=== PATIENT | male | born 1995 | race Caucasian/White ===

== ENCOUNTER 2016-10-16 18:26 | Emergency (ER) | payer OTHER ==
[~2016-10-16] VITALS: Ht 182.9 cm; Wt 75.0 kg
[~2016-10-16 18:26] MED LIST: FLOMAX 0.40.4 MG/CAP PO; KLONOPIN 0.5MG0.5 MG PO; MINOCIN 50M50 MG/CAP PO; PERCOCET 325 MG1 TA2 PO; ULTRAM 50MG TAB50 MG PO; ZOFRAN8 MG PO
[2016-10-16 18:34] VITALS: TEMP 97.9
[2016-10-16 21:19] VITALS: BP 120/72; PULSE 82
== END 2016-10-16 21:21 | disposition home or self-care (01) ==
LOC: COL.ER 18:26
DX: T23.252A Burn of second degree of left palm, initial encounter (principal); T23.242A Burn of second degree of multiple left fingers (nail), including thumb, initial encounter; W39.XXXA Discharge of firework, initial encounter; Z72.89 Other problems related to lifestyle; F41.9 Anxiety disorder, unspecified

== ENCOUNTER 2017-08-27 16:30 | Emergency (ER) | payer OTHER ==
[~2017-08-27] VITALS: Ht 182.9 cm; Wt 72.7 kg
[2017-08-27 16:33] VITALS: TEMP 96.9
[2017-08-27] MEDS ORDERED: XANAX 0.5MG0.5 MG PO (17:01)
[2017-08-27 17:13] LABS: BASO # 0.1 (0.0-0.2); BASO % 0.6 % (0.0-2.0); EOS % 0.3 % (0-4.0); GRAN # 8.2 (1.4-6.5); GRAN % 77.8 % (42.2-75.2); HEMATOCRIT 43.9 % (42.0-52.0); HEMOGLOBIN 14.8 g/dl (13.5-18.0); LYMPH # 1.3 (1.2-3.4); LYMPH % 12.7 % (20.0-51.0); MEAN CELL VOLUME 75 fl (80.0-100.0); MEAN CORPUSCULAR HEMOGLOBIN 25 pg (27.0-31.0); MEAN CORPUSCULAR HGB CONC 34 g/dl (33.0-37.0); MONO # 0.8 (0.1-0.6); MONO % 7.9 % (1.7-9.3); PLATELET COUNT 252 K/mm3 (130-400); RED BLOOD COUNT 5.85 M/mm3 (4.20-5.60); REDCELL DISTRIBUTION WIDTH-CV 14.8 % (11.5-14.5)
[2017-08-27 17:23] LABS: ALBUMIN 4.9 gm/dL (3.5-5.0); BILIRUBIN,TOTAL 1.7 mg/dL (0.0-1.0); CALCIUM 10.1 mg/dL (8.4-10.2); CREATININE, serum 0.84 mg/dL (0.66-1.25); POTASSIUM 4.3 mmol/L (3.4-5.0); TOTAL PROTEIN 8.8 gm/dL (6.4-8.2)
[2017-08-27 18:07] LABS: COLLECTION METHOD CLEAN CATCH
[2017-08-27] MEDS ORDERED: PEPCID 20MG TAB20 MG PO (18:16)
[2017-08-27 18:18] LABS: MUCOUS Present /lpf; PH 7 (5-8); SQUAMOUS EPITHELIAL 0-2 /hpf; URINE APPEARANCE Hazy; URINE BACTERIA None Seen /hpf; URINE BILIRUBIN Positive (NEGATIVE); URINE BLOOD Negative (NEGATIVE); URINE COLOR Amber; URINE GLUCOSE Negative (NEGATIVE); URINE KETONE Trace (NEGATIVE); URINE LEUKOCYTE ESTERASE Negative (NEGATIVE); URINE NITRATE Negative (NEGATIVE); URINE PROTEIN(semi-quant) 2+ (NEGATIVE); URINE RBC None Seen /hpf; URINE UROBILINOGEN >=4.0 mg/dL (NEGATIVE)
[2017-08-27 18:45] VITALS: BP 126/84; PULSE 92
== END 2017-08-27 18:46 | disposition home or self-care (01) ==
LOC: COL.ER 16:30
PROVIDERS: Emergency Medicine
DX: K52.9 Noninfective gastroenteritis and colitis, unspecified (principal); Z87.442 Personal history of urinary calculi
CPT/HCPCS: J2765; J3010; J7030

== ENCOUNTER 2018-09-29 13:57 | Emergency (ER) | payer OTHER ==
[~2018-09-29] VITALS: Ht 182.9 cm; Wt 77.3 kg
[~2018-09-29 13:57] MED LIST changes: +PEPCID 20MG TAB20 MG PO; +XANAX 0.5MG0.5 MG PO
[2018-09-29 16:04] LABS: BASO # 0.1 (0.0-0.2); BASO % 0.7 % (0.0-2.0); EOS % 0.2 % (0-4.0); GRAN # 7.6 (1.4-6.5); GRAN % 78.3 % (42.2-75.2); HEMATOCRIT 43.5 % (42.0-52.0); HEMOGLOBIN 14.3 g/dl (13.5-18.0); LYMPH # 1.4 (1.2-3.4); LYMPH % 13.9 % (20.0-51.0); MEAN CELL VOLUME 75 fl (80.0-100.0); MEAN CORPUSCULAR HEMOGLOBIN 25 pg (27.0-31.0); MEAN CORPUSCULAR HGB CONC 33 g/dl (33.0-37.0); MEAN PLATELET VOLUME 10.4 fl (7.4-10.4); MONO # 0.6 (0.1-0.6); MONO % 6.2 % (1.7-9.3); PLATELET COUNT 250 K/mm3 (130-400); RED BLOOD COUNT 5.84 M/mm3 (4.20-5.60); REDCELL DISTRIBUTION WIDTH-CV 15.1 % (11.5-14.5)
[2018-09-29 16:17] LABS: ALANINE AMINOTRANSFERASE 131 U/L (21-72); ALBUMIN 4.9 gm/dL (3.5-5.0); ALKALINE PHOSPHATASE 59 U/L (50-136); ANION GAP 13 mmol/L (7-16); AST,SGOT 133 U/L (15-37); BLOOD UREA NITROGEN 13 mg/dL (9-20); CALCIUM 9.6 mg/dL (8.4-10.2); CARBON DIOXIDE 28 mmol/L (22-30); CHLORIDE 100 mmol/L (98-107); CREATININE, serum 0.65 (0.66-1.25); GLUCOSE 121 mg/dL (74-106); LIPASE 86 U/L (23-300); POTASSIUM 4.3 mmol/L (3.4-5.0); SODIUM 141 mmol/L (137-145); TOTAL PROTEIN 8.2 gm/dL (6.4-8.2)
[2018-09-29 16:18] LABS: C-REACTIVE PROTEIN < 0.5 mg/dL (0.0-0.9)
[2018-09-29 16:21] LABS: MONOSCREEN NEGATIVE
[2018-09-29 17:04] LABS: COLLECTION METHOD CLEAN CATCH
[2018-09-29 17:09] LABS: MUCOUS Present /lpf; PH 7 (5-8); SQUAMOUS EPITHELIAL None Seen /hpf; URINE APPEARANCE Clear; URINE BACTERIA None Seen /hpf; URINE BILIRUBIN Negative (NEGATIVE); URINE BLOOD Negative (NEGATIVE); URINE COLOR Yellow; URINE GLUCOSE 2+ (NEGATIVE); URINE KETONE 2+ (NEGATIVE); URINE LEUKOCYTE ESTERASE Negative (NEGATIVE); URINE NITRATE Negative (NEGATIVE); URINE PROTEIN(semi-quant) Negative (NEGATIVE); URINE RBC 0-2 /hpf; URINE UROBILINOGEN Negative (NEGATIVE)
[2018-09-29 17:38] VITALS: BP 134/84; PULSE 105; TEMP 99.1
== END 2018-09-29 17:44 | disposition home or self-care (01) ==
LOC: COL.ER 13:57
PROVIDERS: Physician Assistant
DX: R10.12 Left upper quadrant pain (principal); F41.9 Anxiety disorder, unspecified; Z87.442 Personal history of urinary calculi
CPT/HCPCS: J7030